=== PATIENT | female | born 1945 | race Asian ===

== ENCOUNTER → 2017-07-11 | Outpatient (CLI) | payer MEDICARE ==
[~2017-07-11] MED LIST: REGADENOSON 0.4 MG/5 ML SYRINGE ONE
== END | disposition home or self-care (01) ==
LOC: CFH 08:46
PROVIDERS: ATTEND Internal Medicine Cardiovascular Disease
DX: I20.9 Angina pectoris, unspecified (principal)
CPT/HCPCS: 78452; 93017; A9502; J2785

== ENCOUNTER → 2020-04-13 | Outpatient (CLI) | payer MEDICARE ==
[~2020-04-13] MED LIST changes: +ASCO100018 PO; +ATOR10TA9 PO; +CHOL10003 PO; +DEXA6TAB6 PO; +ENOX40SY4 SQ; +FAMO-79 PO; +FURO-93 PO; +LEVO75TA PO; +LORA-445 PO; +MELA1TAB22 PO; +METO25TA4 PO; +ONDA4TAB13 SL; -REGADENOSON 0.4 MG/5 ML SYRINGE ONE; +SUCR1TAB33 PO; +zinc PO
== END | disposition home or self-care (01) ==
LOC: CVU 06:47
PROVIDERS: ATTEND Internal Medicine Cardiovascular Disease
DX: I10 Essential (primary) hypertension (principal); R06.02 Shortness of breath
CPT/HCPCS: 93306; 93356

== ENCOUNTER 2020-04-17 11:28 | Outpatient (CLI) | payer MEDICARE ==
[~2020-04-17 11:28] MED LIST changes: +REGADENOSON 0.4 MG/5 ML SYRINGE ONE
== END 2020-04-17 23:59 | disposition home or self-care (01) ==
LOC: CFH 11:28
PROVIDERS: ATTEND Internal Medicine Cardiovascular Disease
DX: I10 Essential (primary) hypertension (principal); R06.02 Shortness of breath
CPT/HCPCS: 78452; 93017; A9502; J2785